=== PATIENT | female | born 1985 | race Caucasian/White ===

== ENCOUNTER 2016-07-04 15:26 | Inpatient (IN) | payer OTHER ==
--- NOTE | ~2016-07-04 | HP ---
Unit #: [id number] #: [id number] Patient: JOYCE RAMOS [id number] [place] [address] [id number] MR#: [id number] NAME: JOYCE RAMOS ROOM: P209 Age: 30 Sex: F Admission Date: 07/04/2016 : 1985 Attending Physician: Adolfo Coyle M.D. Admitting Physician: Adolfo Coyle M.D. Primary Care Physician: Leatha Doctor Not In System HISTORY AND PHYSICAL HISTORY OF PRESENT ILLNESS The patient is a 30-year-old female admitted to [address] [place] [address] on 07/04/2016 to detox from heroin. PAST MEDICAL HISTORY 1. Heroin abuse. 2. Nicotine dependence. PAST SURGICAL HISTORY section. SOCIAL HISTORY The patient is unemployed. She lives with her mother and her children. She smokes one pack of cigarettes daily. Smokes two blunts per day and uses two grams of heroin per day. FAMILY MEDICAL HISTORY Noncontributory. ALLERGIES No known drug allergies. CURRENT MEDICATIONS The patient is not on any home medications. REVIEW OF SYSTEMS CONSTITUTIONAL: No fever or chills. HEENT: Denies any sore throat, ear pain or runny nose. CARDIOVASCULAR: Denies chest pain, irregular heart rhythm or palpitations. CHEST: Denies shortness of breath or cough. No hemoptysis. GASTROINTESTINAL: Denies nausea, vomiting, diarrhea or chronic constipation. ENDOCRINE: Denies history of increased thirst or urination. No recent significant weight loss or gain. GENITOURINARY: Denies dysuria, frequency, or hematuria. SKIN: Denies any rashes. HEMATOLOGIC: Denies history of increased bleeding or bruising. MUSCULOSKELETAL: Denies any hot, swollen joints. No generalized muscle pain. NEUROLOGIC: Denies problems with vision or speech. No frequent, severe headaches. No numbness, tingling or weakness in any extremities. Denies loss of bladder or bowel control. Unit #: [id number] #: [id number] Patient: JOYCE RAMOS PHYSICAL EXAM GENERAL: She is awake, alert and oriented in no acute distress. VITAL SIGNS: Temperature 98.2, heart rate 98, respiration 16, blood pressure 130/84. HEIGHT: 5'2". WEIGHT: 162 pounds. SKIN: Warm and dry without rash or lesion. HEENT: Normocephalic. TMs not viewed. Oral and nasal passages clear. Conjunctivae clear. PERRLA. EOMs intact. NECK: Supple without lymphadenopathy or thyromegaly. HEART: Regular rate and rhythm without murmur. LUNGS: Clear. ABDOMEN: Soft, nontender. : Not done. EXTREMITIES: No evidence of cyanosis, clubbing or edema. Moves all without focal deficit. NEUROLOGICAL: Grossly within normal limits. Cranial Nerves: II: Visual horan are intact. III, IV AND : Extraocular movements are intact. Pupils are equal, round and reactive to light. V: Facial sensation is grossly normal. VII: Facial movements and expression are normal. VIII: Auditory acuity grossly intact. IX, X: Uvula is midline. Phonation is normal. XI: Patient shrugs shoulders and turns head normally. XII: Tongue protrudes in the midline. Sensory and Motor Function: Sensory and motor sensation is grossly normal. Motor: moves all extremities well. IMPRESSION 1. Psychiatric admission. 2. Heroin abuse. 3. Nicotine dependence. RECOMMENDATIONS Psychiatric per psychiatrist. MEDICAL: No contraindication to participate in facility activities. MEDICAL PROGNOSIS Good. MEDICAL CONDITION Stable. Dictated by... Graciela Ramirez/earlene TD: 07/05/2016 23:02 JOB #: [id number] Unit #: [id number] #: [id number] Patient: JOYCE RAMOS HISTORY AND PHYSICAL X JENNA AUGUSTIN APRN X HISTORY AND PHYSICAL
--- NOTE | ~2016-07-04 | DS ---
Unit #: [id number] #: [id number] Patient: JOYCE RAMOS [id number] [facility] [address] [place] [address] [id number] I MR#: [id number] NAME: JOYCE RAMOS ROOM: P20 Age: 30 Sex: F Admission Date: 07/04/2016 : 1985 Discharge Date: 07/06/2016 Attending Physician: Adolfo Coyle M.D. Primary Care Physician: Generic Doctor Not In System DISCHARGE SUMMARY REASON FOR ADMISSION The patient is a 30-year-old white female, admitted with recurrent abuse of heroin. HOSPITAL COURSE The patient was admitted to the [address] [place] [address] unit and begun on Effexor XR 37.5 mg q.a.m. Vistaril 50 mg q.6 hours was added on a p.r.n. basis for anxiety and melatonin 6 mg at h.s. added on a p.r.n. basis for insomnia. On 07/06/2016, the patient requested discharge from the hospital. She exhibited no signs or symptoms of withdrawal and was agreeable with plan for followup through the auspices of [facility]. As per her request, discharge was ordered. FINAL DIAGNOSES Opioid use disorder, dysthymic disorder. DISPOSITION ON DISCHARGE The patient is discharged on the following medications; Effexor XR 37.5 mg daily for depression, Vistaril 50 mg q.6 hours p.r.n. anxiety. DISCHARGE INSTRUCTIONS No dietary or physical restrictions were placed upon the patient at the time of discharge. FOLLOWUP Followup will take place through the auspices of [facility]. PROGNOSIS The patient's prognosis is considered fair. Dictated by... Adolfo Coyle M.D. CB/keila TD: 07/06/2016 21:52 JOB #: [id number] Unit #: [id number] #: [id number] Patient: JOYCE RAMOS DISCHARGE SUMMARY X Adolfo Coyle MD X DISCHARGE SUMMARY
--- NOTE | ~2016-07-04 | PA ---
Unit #: [id number] #: [id number] Patient: JOYCE RAMOS [id number] [place] [address] [id number] I MR#: [id number] NAME: JOYCE RAMOS ROOM: P209 Age: 30 Sex: F Admission Date: 07/04/2016 : 1985 Date of Assessment: 07/05/2016 Attending Physician: Adolfo Coyle M.D. Admitting Physician: Adolfo Coyle M.D. Primary Care Physician: Generic Doctor Not In System PSYCHIATRIC ASSESSMENT IDENTIFYING INFORMATION The patient is a 30-year-old white female admitted with recurrent abuse of intravenous heroin. CHIEF COMPLAINT I'm tired of it INFORMANT Patient, reliability is good. HISTORY OF PRESENT ILLNESS The patient is a 30-year-old single white female with a history of opioid dependence. She has been under the care of Dr. Cee at this facility in the past. She returns having once again relapsed on heroin. The patient reports that as a result of her heroin use she has lost her job at [employer]. The patient reports a history of positive response to Effexor but is not presently taking this medication. She does complain of dysphoric mood and complains of severe symptoms of withdrawal. In addition to abuse of heroin the patient admits to abuse of cannabis and also reports that she abuses illicitly obtained Neurontin. She has a prior history of abuse of methamphetamines and cocaine but reports no recent use of these medications. When seen today the patient reports great depression but denies any suicidal or homicidal ideation. She expresses future orientation with regards to her treatment. PAST PSYCHIATRIC HISTORY As above. PAST MEDICAL HISTORY Reviewed no changes. MEDICATIONS None at this time. ALLERGIES None. FAMILY HISTORY Noncontributory. SOCIAL HISTORY Reviewed no changes. Unit #: [id number] #: [id number] Patient: JOYCE RAMOS MENTAL STATUS EXAMINATION At this time reveals the patient to be a well-developed, well-nourished white female, appearing her stated age. She appears to be in moderate physical distress related to opioid withdrawal. She is awake and alert and oriented in all spheres. Her mood is dysphoric, her affect blunted. Speech is generally relevant and coherent. There are no gross deficits in memory or cognition noted. Intelligence is judged to be in the average range based on fund of knowledge. The patient is cooperative throughout the interview. He is currently denying suicidal or homicidal ideation or psychotic features. Judgment and insight appear to be intact. ASSETS AND LIABILITIES ASSETS: Motivation for change. LIABILITIES: Lack of resources. ADMITTING DIAGNOSES 1. Opioid use disorder 2. Dysthymic disorder PSYCHIATRIC PLAN/TREATMENT GOALS The patient remains hospitalized for safety and stabilization. We will initiate Effexor XR medication to which the patient reports a history of positive response and we will add Vistaril on a p.r.n. basis for anxiety. The patient will participate in appropriate velázquez and milieu activities with an estimate length of stay in the hospital of 5 to 7 days. Dictated by... Adolfo Coyle M.D. LINO/earlene TD: 07/06/2016 01:18 JOB #: [id number] PSYCHIATRIC ASSESSMENT X Adolfo Coyle MD X PSYCHIATRIC ASSESSMENT
[2016-07-05 12:37] LABS: BASOPHIL% 0.6 % (0-2.5); EOSINOPHIL# 0.3 X10e3 (0-0.7); EOSINOPHIL% 5.4 % (0.0-7.0); HEMATOCRIT 41.6 % (35.0-45.0); LYMPHOCYTE# 2.1 X10e3 (1.0-3.5); LYMPHOCYTE% 35.1 % (17.0-45.0); MEAN CELL VOLUME 94.9 FL (83-96); MEAN CORPUSCULAR HGB CONC 33.7 g/dL (30-36); MEAN PLATELET VOLUME 9.8 FL (6.5-11.5); MONOCYTE# 0.4 X10e3 (0-1.0); MONOCYTE% 6.1 % (3.0-12.0); NEUTROPHIL# 3.2 X10e3 (1.5-7.1); NEUTROPHIL% 52.8 % (40-75); PLATELET COUNT 161 X10e3 (140-420); RED BLOOD COUNT 4.39 X10e (3.90-5.30); RED CELL DISTRIBUTION WIDTH 12.8 % (11.0-15.5)
[2016-07-05 12:41] LABS: DIFF IND NO
[2016-07-05 12:49] LABS: ALBUMIN SERUM 3.6 g/dL (3.5-5.0); ALKALINE PHOSPHATASE 79 U/L (32-92); ALT (SGPT) 27 U/L (10-40); AST (SGOT) 22 U/L (10-42); BILIRUBIN,TOTAL 0.3 mg/dL (0.2-2.0); BLOOD UREA NITROGEN 8 mg/dL (9-23); BUN/CREATININE RATIO 11.42; CARBON DIOXIDE 24 mmol/L (22-31); CHLORIDE 109 mmol/L (100-111); CREATININE SERUM 0.7 mg/dL (0.6-1.4); GLOM FILT RATE Estimated ABOVE60 mL/min (>60); GLUCOSE FASTING 77 mg/dL (70-110); POTASSIUM 4.3 mmol/L (3.5-5.1); PROTEIN TOTAL SERUM 6.7 g/dL (6.0-8.3); SODIUM 139 mmol/L (135-145)
[2016-07-05 13:12] LABS: THYROID STIMULATING HORMONE 0.19 uIU/ml (0.34-5.60)
[2016-07-05 13:19] LABS: FREE THYROXIN (T4) 0.79 ng/dL (0.58-1.64)
[2016-07-06 09:37] LABS: URINE APPEARANCE CLOUDY; URINE BILIRUBIN NEG (NEG); URINE BLOOD 1+ (NEG); URINE COLOR YELLOW; URINE GLUCOSE NEG (NEG); URINE KETONE NEG (NEG); URINE LEUKOCYTE ESTERASE TRACE (NEG); URINE NITRATE POS (NEG); URINE PH 7.5 (5-8); URINE PROTEIN NEG (NEG); URINE SPECIFIC GRAVITY 1.016 (1.003-1.035)
[2016-07-06 09:39] LABS: U HYALINE CASTS AUWI 0-2 /[LPF]; URBCS1 AUWI 0-2 /[HPF] (0-2); URINE BACTERIA AUWI 4+ (NEGATIVE); URINE SQUAMOUS EPITHELIAL CELL OCC /[HPF]
[2016-07-06 10:26] LABS: AMPHETAMINE NEG (NEG); BARBITURATES NEG (NEG); BENZODIAZEPINES NEG (NEG); COCAINE NEG (NEG); MARIJUANA POS (NEG); OPIATES POS (NEG); TRICYCLIC ANTIDEPRESSANTS NEG (NEG); U METHADONE NEG (NEG)
[2016-07-06 10:30] LABS: URINE CRYSTALS CALCIUM OXALATE /[HPF]
[2016-07-10 09:06] LABS: HA AB IGM (HEPPAN) Nonreactive (Nonreactive); HB CORE AB IGM (HEPPAN) Nonreactive (Nonreactive); HB S AG (HEPPAN) Nonreactive (Nonreactive); HEP C AB (HEPPAN) Reactive (Nonreactive)
== END 2016-07-06 15:32 | DRG 897 ==
LOC: P2S 15:26
PROVIDERS: Specialist
DX: F11.20 Opioid dependence, uncomplicated (principal); F34.1 Dysthymic disorder; Z56.0 Unemployment, unspecified; F12.10 Cannabis abuse, uncomplicated; F17.200 Nicotine dependence, unspecified, uncomplicated
CPT/HCPCS: 80053; 80074; 80307; 81003; 84439; 84443; 85025; 86592; 87522; 87806